=== PATIENT | male | born 1980 | race Caucasian/White ===

== ENCOUNTER 2019-07-17 12:16 | Outpatient (CLI) | payer MEDICAID ==
--- NOTE | 2019-07-17 14:55 | XRAY Report ---
Reason: CHRONIC PAIN R ANKLE Procedure Date: 07/17/2019 Accession Number: [id number] / [id number] Procedure: XR - Ankle 3 View RT CPT Code: Final Report FULL RESULT: EXAM: RIGHT ANKLE RADIOGRAPHY EXAM DATE: 07/17/2019 12:31 PM. CLINICAL HISTORY: Chronic pain right ankle. COMPARISON: LEG LOWER RT 03/12/2016 5:15 PM CALCANEUS RT 08/11/2016 10:31 AM CALCANEUS RT 06/21/2016 1:26 PM. TECHNIQUE: 3 views. FINDINGS: Bones: Prior operative fixation of calcaneal fracture appears essentially unchanged in configuration. Previously seen mild protrusion of the distal end of a screw beyond the cortex of the calcaneus as seen in 2015 and 2016 is not visualized on today's projections. Joints: The ankle mortise is intact. No odell dislocation. Soft Tissues: No unexpected radiopaque foreign body or soft tissue gas. IMPRESSION: As visualized, essentially unchanged appearance of prior operative fixation of calcaneal fracture without derangement of the ankle mortise. Of note, several screws were demonstrated to protrude beyond the osseous cortex on previous calcaneus radiographs with ipsilateral soft tissue swelling. RADIA
== END 2019-07-17 12:17 | disposition home or self-care (01) ==
LOC: DI 12:16
PROVIDERS: ATTEND Podiatrist
DX: M25.571 Pain in right ankle and joints of right foot (principal)

== ENCOUNTER 2019-08-06 13:46 | Outpatient (CLI) | payer MEDICAID ==
[2019-08-06 13:59] LABS: BASOPHILS # (AUTO) 0.1 10^3/uL (0.0-0.1); EOSINOPHILS # (AUTO) 0.4 10^3/uL (0.0-0.7); EOSINOPHILS % (AUTO) 3.2 %; HGB - HEMOGLOBIN 14.6 g/dL (14.0-18.0); LYMPHOCYTES # (AUTO) 3.2 10^3/uL (1.5-3.5); LYMPHOCYTES % (AUTO) 25.3 %; MEAN CORPUSCULAR HEMOGLOBIN 29.9 pg (27.0-31.0); MEAN CORPUSCULAR HGB CONC 32.7 g/dL (32.0-36.0); MEAN CORPUSCULAR VOLUME 91.2 fL (80.0-94.0); MEAN PLATELET VOLUME 9.9 fL (7.4-11.4); MONOCYTES # (AUTO) 0.6 10^3/uL (0.0-1.0); MONOCYTES % (AUTO) 4.8 %; NEUTROPHILS # (AUTO) 8.2 10^3/uL (1.5-6.6); NEUTROPHILS % (AUTO) 65.1 %; PLT - PLATELET COUNT 298 10^3/uL (130-450); RED BLOOD COUNT 4.89 10^6/uL (4.70-6.10); RED CELL DISTRIBUTION WIDTH 13.7 % (12.0-15.0); WHITE BLOOD COUNT 12.6 x10^3/uL (4.8-10.8)
[2019-08-06 14:15] LABS: ALBUMIN 4.6 g/dL (3.2-5.5); ALBUMIN/GLOBULIN RATIO 1.5 (1.0-2.2); BILIRUBIN,TOTAL 0.5 mg/dL (0.2-1.0); CALCIUM 9.5 mg/dL (8.5-10.3); CREATININE 0.9 mg/dL (0.6-1.2); TOTAL PROTEIN 7.7 g/dL (6.7-8.2)
== END 2019-08-06 13:47 | disposition home or self-care (01) ==
LOC: LAB 13:46
PROVIDERS: ATTEND Family Medicine
DX: R10.13 Epigastric pain (principal)
CPT/HCPCS: 36415; 80053; 82150; 83690; 85025

== ENCOUNTER 2019-10-17 07:15 | Outpatient (CLI) | payer MEDICAID ==
--- NOTE | 2019-10-17 08:41 | Ultrasound Report ---
Reason: EPIGASTRIC PAIN Procedure Date: 10/17/2019 Accession Number: [id number] / [id number] Procedure: US - Abdomen Complete CPT Code: Final Report FULL RESULT: EXAM: ABDOMEN ULTRASOUND EXAM DATE: 10/17/2019 07:15 AM. CLINICAL HISTORY: EPIGASTRIC PAIN. COMPARISON: None. TECHNIQUE: Real-time scanning was performed with static images obtained. FINDINGS: Liver: Submitted images of the liver demonstrate no focal lesions. Main portal vein flow: Hepatopetal. Gallbladder: Normal. No stones, wall thickening, or sonographic Santiago's sign. Biliary System: Common bile duct measures 7 mm. No evidence of intrahepatic bile duct dilatation. Pancreas: Pancreatic parenchyma is within normal limits. There is mild dilatation of the pancreatic duct which measures up to 0.3 cm. Kidneys: Right: 10.3 cm longitudinally. Normal. No contour-deforming mass, stones, or hydronephrosis. Left: 10.6 cm longitudinally. Normal. No contour-deforming mass, stones, or hydronephrosis. Spleen: 12.8 cm. Normal in size and echotexture. Aorta and Inferior Vena Cava: Unremarkable. Other: None. IMPRESSION: 1. No sonographic findings to clearly account for the patient's presentation. 2. Borderline common bile duct dilatation. No evidence of choledocholithiasis or intrahepatic bile duct dilatation. 3. The gallbladder demonstrates no stones or wall thickening. 4. Mild dilatation of the pancreatic duct. Submitted images of the pancreas demonstrate no focal lesions. RADIA
== END 2019-10-17 07:16 | disposition home or self-care (01) ==
LOC: DI 07:15
PROVIDERS: ATTEND Family Medicine
DX: R10.13 Epigastric pain (principal); K83.8 Other specified diseases of biliary tract; K86.89 Other specified diseases of pancreas
CPT/HCPCS: 76700

== ENCOUNTER 2020-05-13 10:17 | Outpatient (CLI) | payer OTHER, MEDICAID ==
--- NOTE | 2020-05-13 13:21 | XRAY Report ---
PROCEDURE: Calcaneus RT INDICATIONS: DISPLACED INTERARTICULAR FX OF R CALCANEUS TECHNIQUE: Two views of the calcaneus were acquired. COMPARISON: 08/11/2016 FINDINGS: Bones: Status post ORIF with plate and screws fixation of the right calcaneus without evidence for massey rdware failure or loosening. No acute fractures or dislocations. Increased sclerosis involving the c alcaneal side of the subtalar joint. Degenerative changes of the tibiotalar joint. No suspicious bony lesions. Soft tissues: No suspicious calcifications. Achilles tendon appears normal. IMPRESSION: Status post surgical fixation of right calcaneal fracture without evidence for hardware loosening or failure. Increased subchondral sclerosis involving the calcaneal side of the subtalar joint likely se quela reactive changes from altered mechanics post injury. No acute fracture seen. Reviewed by: Deniz Schmidt MD on 05/13/2020 1:19 PM PDT Approved by: Deniz Schmidt MD on 05/13/2020 1:19 PM PDT Station ID: [id number]
== END 2020-05-13 23:59 | disposition home or self-care (01) ==
LOC: DI.WCP 10:17
PROVIDERS: ATTEND Orthopaedic Surgery
DX: M76.61 Achilles tendinitis, right leg (principal); S92.061D Displaced intraarticular fracture of right calcaneus, subsequent encounter for fracture with routine healing

== ENCOUNTER 2020-09-20 07:00 | Outpatient (CLI) | payer MEDICAID ==
--- NOTE | 2020-09-20 10:15 | XRAY Report ---
PROCEDURE: Shoulder 3 View LT INDICATIONS: L SHOULDER JOINT PX TECHNIQUE: 3 views of the shoulder were acquired. COMPARISON: None. FINDINGS: Bones: No fractures or dislocations. Very mild left AC joint osteophytic changes are seen with joint space narrowing and subchondral sclerosis. No suspicious bony lesions. Visualized ribs appear intac t. Soft tissues: No suspicious soft tissue calcifications. IMPRESSION: Very mild AC joint osteoarthritis. No shoulder fracture or dislocation. Reviewed by: Alex Rodríguez MD on 09/20/2020 10:13 AM [facility] Approved by: Alex Rodríguez MD on 09/20/2020 10:13 AM [facility] Station ID: [id number]
== END 2020-09-20 23:59 | disposition home or self-care (01) ==
LOC: DI.N 07:00
PROVIDERS: ATTEND Family Medicine
DX: M25.512 Pain in left shoulder (principal); M19.012 Primary osteoarthritis, left shoulder

== ENCOUNTER 2021-01-05 19:44 | Emergency (ER) | payer MEDICAID ==
--- NOTE | 2021-01-05 21:10 | ED Physician Documentation ---
History of Present Illness - Stated complaint Stated Complaint: RT LEG SWELLING - Chief complaint Chief Complaint: Ext Problem - History obtained from History obtained from: Patient - History of Present Illness Timing: How many weeks ago (1) Pain level now: 7 Improved by: rest Worsened by: prolonged standing - Additonal information Additional information: c/o 1 week of atraumatic, gradual onset RLE swelling distal to level of mid- tibia. He subsequently developed pain in same area, although the pain is predominantly anterior aspect only; the pain has been for 2-3 days. He was evaluated in urgent care today and was advised to come to ED for evaluation Review of Systems Constitutional: denies: Fever, Chills, Sweats Cardiac: denies: Chest pain / pressure Respiratory: denies: Dyspnea Skin: denies: Rash Musculoskeletal: reports: Extremity pain, Extremity swelling. denies: Pain with weight bearing Neurologic: denies: Focal weakness, Numbness PD PAST MEDICAL HISTORY - Past Medical History Cardiovascular: None Respiratory: None Endocrine/Autoimmune: None GI: GERD, Ulcers : None Psych: Depression, Anxiety Musculoskeletal: Chronic back pain, Other Derm: None - Past Surgical History Past Surgical History: No General: EGD - Present Medications Home Medications: Ambulatory Orders Medication Instructions Recorded Confirmed Gabapentin 300 mg PO BID #20 capsule 03/15/16 01/05/21 - Allergies Allergies/Adverse Reactions: Allergies Allergy/AdvReac Type Severity Reaction Status Date / Time No Known Drug Allergies Allergy Verified 01/05/21 20:00 - Social History Does the pt smoke?: Yes Smoking Status: Current every day smoker Does the pt drink ETOH?: No Does the pt have substance abuse?: No - Immunizations Immunizations are current?: Yes Immunizations: No immun - POLST Patient has POLST: No PD ED PE NORMAL - Vitals Vital signs reviewed: Yes - General General: Alert and oriented X 3, No acute distress, Well developed/nourished - Derm Derm: Normal color, Warm and dry, No rash - Extremities Extremities: No tenderness to palpate, No edema, No calf tenderness / cord, Other (no obvious/overt edema RLE. nontender to palpation. Negative Heladio's) Results - Vitals Vitals: Vital Signs - 24 hr 01/05/21 01/05/21 19:57 22:03 Temperature 36.3 C L 36.8 C Heart Rate 71 58 L Respiratory 16 16 Rate Blood Pressure 125/71 110/66 O2 Saturation 97 98 Oxygen O2 Source Room air - Rads (name of study) RLE venous doppler Radiology: Prelim report reviewed, See rad report PD MEDICAL DECISION MAKING - ED course Complexity details: reviewed results, re-evaluated patient, considered differential, d/w patient ED course: US is negative for acute process including DVT. results d/w patient. unknown etiology of symptoms at this time, instructed to return if worse or new concerning signs or symptoms develop such as rash, fever Departure - Departure Disposition: 01 Home, Self Care Clinical Impression: Peripheral edema Condition: Good Instructions: ED Leg Swelling Unilateral Follow-Up: Nick Ray MD [Primary Care Provider] - Within 1 week Forms: Activity restrictions Discharge Date/Time: 01/05/21 22:56
[2021-01-05 22:04] VITALS: BP 110/66
--- NOTE | 2021-01-06 07:10 | Ultrasound Report ---
PROCEDURE: Duplex Ext Veins Right INDICATIONS: pain, swelling TECHNIQUE: Real-time imaging, as well as color and pulse Doppler interrogation, were performed of the lower extr emity deep veins from the inguinal ligament to the popliteal fossa. COMPARISON: None. FINDINGS: The deep veins are normally compressible, and free of intraluminal thrombus. Color and pu lse Doppler demonstrate normal phasic intraluminal flow. There is normal augmentation response to di stal compression maneuver. IMPRESSION: No evidence of deep vein thrombosis involving the right lower extremity. Reviewed by: Nan Shepard MD, PhD on 01/06/2021 7:08 AM PDT Approved by: Nan Shepard MD, PhD on 01/06/2021 7:08 AM PDT Station ID: [id number]
== END 2021-01-05 22:56 | disposition home or self-care (01) ==
LOC: ED 19:44
DX: R60.9 Edema, unspecified (principal); F17.200 Nicotine dependence, unspecified, uncomplicated
CPT/HCPCS: 99283; 99284

== ENCOUNTER 2021-01-21 12:52 | Emergency (ER) | payer OTHER, MEDICAID ==
[2021-01-21] MEDS ORDERED: TETANUS/DIPHTHERIA/PERTUSSIS 0.5 ML SYRINGE IM ONE (13:20)
[2021-01-21] MEDS ORDERED: HYDROmorphone 1 MG/ML CARPUJECT IVP STA ×3 (13:20→16:03)
--- NOTE | 2021-01-21 13:25 | ED Physician Documentation ---
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 Also scrape to the right forearm with unknown tetanus status. No amnesia, no head or neck injury. He is unable to walk or bear weight. Has a history of calcaneal fracture on the same side status post ORIF. Review of Systems Ten Systems: 10 systems reviewed and negative Constitutional: reports: Reviewed and negative Eyes: reports: Reviewed and negative Ears: reports: Reviewed and negative Nose: reports: Reviewed and negative PD PAST MEDICAL HISTORY - Past Medical History Cardiovascular: None Respiratory: None Endocrine/Autoimmune: None GI: GERD, Ulcers : None Psych: Depression, Anxiety Musculoskeletal: Chronic back pain, Other Derm: None - Past Surgical History Past Surgical History: No General: EGD Ortho: Other - Present Medications Home Medications: Ambulatory Orders Medication Instructions Recorded Confirmed Gabapentin 300 mg PO BID #20 capsule 03/15/16 01/05/21 Knee Scooter 1 unit TD ONCE #1 01/21/21 Oxycodone HCl/Acetaminophen 1 - 2 each PO Q6H PRN #30 tablet 01/21/21 [Percocet 5-325 mg Tablet] - Allergies Allergies/Adverse Reactions: Allergies Allergy/AdvReac Type Severity Reaction Status Date / Time No Known Drug Allergies Allergy Verified 01/05/21 20:00 - Social History Does the pt smoke?: Yes Smoking Status: Current every day smoker Does the pt drink ETOH?: No Does the pt have substance abuse?: No - Immunizations Immunizations are current?: Yes Immunizations: No immun - POLST Patient has POLST: No PD ED PE NORMAL - Vitals Vital signs reviewed: Yes - General General: Alert and oriented X 3, No acute distress - HEENT HEENT: PERRL, EOMI - Neck Neck: Supple, no meningeal sign, No bony TTP - Cardiac Cardiac: RRR, No murmur - Respiratory Respiratory: No respiratory distress, Clear bilaterally - Abdomen Abdomen: Non tender - Back Back: No CVA TTP, No spinal TTP - Derm Derm: Normal color, Warm and dry - Extremities Extremities: Other (There is a clear deformity of the right ankle consistent with at least a bimalleolar fracture with inversion at the ankle, normal neurovascular function in the foot. No proximal fibular tenderness. Shallow abrasion right medial forearm, no tenderness or limited range of motion) - Neuro Neuro: Alert and oriented X 3, No motor deficit, No sensory deficit, Normal speech Eye Opening: Spontaneous Motor: Obeys Commands Verbal: Oriented GCS Score: 15 Results - Vitals Vitals: Vital Signs - 24 hr 01/21/21 01/21/21 01/21/21 13:08 14:19 14:35 Temperature 36.3 C L Heart Rate 102 H 60 60 Respiratory 20 14 10 L Rate Blood Pressure 150/116 H 122/78 112/72 O2 Saturation 98 100 100 01/21/21 01/21/21 01/21/21 14:40 14:45 15:13 Temperature 36.7 C Heart Rate 60 62 58 L Respiratory 15 18 16 Rate Blood Pressure 113/72 111/71 115/70 O2 Saturation 97 97 98 Oxygen O2 Source Room air - Rads (name of study) Ankle x-ray shows bimalleolar and possibly trimalleolar fracture. Postreduction x-rays improved but not perfect alignment. Radiology: EMP read contemporaneously Procedures - Splint (location) RLE Splint applied by: Physician, Tech Type of splint: Fiberglass, Long leg, Posterior, Stirrup Other: Patient tolerated well, No complications, Neurovascular intact, Crutches provided - Reduction Body part reduced: Right, Ankle Fracture or dislocation: Fracture dislocation Reduction aftercare: Xray confirms reduction, Alignment improved, Splint applied - Procedural sedation Sedation prep: Informed consent, Time out completed, Last meal (8am), PE performed (Mallampati 2), ASA 1 - healthy Sedation medications: propofol (100mg then 30mg IVP) Patient status during sedation: Responds to tactile, Vitals remained stable, Maintained airway, Recovered uneventfully Sedation recovery: Recovered uneventfully Time in sedation (Minutes): 15 Departure - Departure Disposition: 01 Home, Self Care Clinical Impression: Closed bimalleolar fracture of right ankle Qualifiers: Encounter type: initial encounter Qualified Code(s): S82.841A - Displaced bimalleolar fracture of right lower leg, initial encounter for closed fracture Condition: Good Record reviewed to determine appropriate education?: Yes Instructions: ED Fx Lower Ext, ED Splint Care Fiberglass Follow-Up: Tim Barrientos MD [Provider Admit Priv/Credential] - Within 3 Days (Call Sunday for appt) Prescriptions: Knee Scooter 1 unit TD ONCE #1 Oxycodone HCl/Acetaminophen [Percocet 5-325 mg Tablet] 1 - 2 each PO Q6H PRN #30 tablet PRN Reason: pain Comments: Keep it elevated as much as possible. Do not walk or bear weight on the right leg. Follow-up with the orthopedist, calling first thing Sunday for an appointment. I am prescribing a short course of narcotic pain medication for you. These are potentially dangerous and addictive medications that should be used carefully. These medications may constipate you. Take an obeo-jyz-wfrunxe stool softener (docusate) twice daily with plenty of water while taking these medications. If you go 24 hours without a bowel movement, take riuu-rmt-fwjxhef miralax, per package instructions. Do not drink or drive while taking these medications. If you received narcotic or sedating medications while in the emergency department, do not drive for 24 hours. Store this medication in a safe, secure place and out of reach of children. It is a violation of federal law to give or sell this medication to another person or to use in a manner other than prescribed. The ED will not refill narcotic prescriptions, including prescriptions lost or stolen. To dispose of unwanted medications: 1. [facility] at [address] in [place] has a medication drop box. They accept prescription medications (in pill form) Sunday through Sunday 9:00 a.m. to 5:00 p.m. 2. The [facility] [employer] [facility] accepts prescription medications (in pill form only) for disposal year round. Call for more information. 3. Contact the [facility] for the next [facility] sponsored prescription drug collection event. , [phone], or [phone]; Note that many narcotic pain relievers also contain Tylenol/acetaminophen. Please ensure that your total dose of acetaminophen from all sources does not exceed 3 g (3000 mg) per day. Forms: Activity restrictions
[2021-01-21] MEDS ORDERED: PROPOFOL 200 MG/20 ML VIAL IVP STA ×2 (14:05→14:42)
--- NOTE | 2021-01-21 15:24 | XRAY Report ---
PROCEDURE: Tib/Fib RT INDICATIONS: post reduction TECHNIQUE: 2 views of the tibia and fibula were acquired. COMPARISON: X-ray ankle 01/21/2021 FINDINGS: Bones: There are displaced medial and lateral malleolar fractures. There is widening of the tibiotala r joint space. Medial malleolar fracture fragment remains displaced. The posterior malleolus is not w ell evaluated on current exam. No suspicious bony lesions. Soft tissues: No suspicious soft tissue calcifications or masses. IMPRESSION: Interval reduction of bimalleolar fracture. There is widening at the tibiotalar joint space, as well as persistent displacement of the medial malleolar fracture fragment. Reviewed by: Stefanie Granda MD on 01/21/2021 3:22 PM PDT Approved by: Stefanie Granda MD on 01/21/2021 3:22 PM PDT Station ID: [id number]
--- NOTE | 2021-01-21 15:29 | XRAY Report ---
PROCEDURE: Ankle 3 View RT INDICATIONS: ankle inj TECHNIQUE: 3 views of the ankle were acquired. COMPARISON: None FINDINGS: Bones: Mildly displaced and impacted transverse fracture of the tibial metaphysis, nondisplaced media l malleolar fracture, and mildly displaced fracture of the fibula at the level of the syndesmosis. An oblique coronal oriented posterior malleolar fracture is suspected. The tibiofibular relationship ap pears to remain stable. Although there is extension of the medial malleolar fracture plane to the ank le mortise, the ankle mortise is normally aligned. No suspicious bony lesions. There is hardware wi th several transverse fixation screws across the calcaneus. Soft tissues: Small tibiotalar joint effusion. Achilles tendon appears diminutive. IMPRESSION: 1. Mildly displaced bimalleolar fracture. 2. Impacted tibial metaphyseal fracture with probable fracture plane to the posterior malleolus exten ding to the articular surface. 3. Prior surgical fixation of the calcaneus. Reviewed by: Kala Sloan MD on 01/21/2021 3:28 PM PDT Approved by: Kala Sloan MD on 01/21/2021 3:28 PM PDT Station ID: [id number]
[2021-01-21 15:54] VITALS: BP 119/78
[2021-01-21] MEDS ORDERED: KETOROLAC 15 MG/ML VIAL IVP STA (16:03)
== END 2021-01-21 16:29 | disposition home or self-care (01) ==
LOC: ED 12:52
DX: S82.841A Displaced bimalleolar fracture of right lower leg, initial encounter for closed fracture (principal); S50.811A Abrasion of right forearm, initial encounter; W13.2XXA Fall from, out of or through roof, initial encounter; Y93.89 Activity, other specified; Y92.008 Other place in unspecified non-institutional (private) residence as the place of occurrence of the external cause; Y99.0 Civilian activity done for income or pay; Z23 Encounter for immunization; F17.200 Nicotine dependence, unspecified, uncomplicated
CPT/HCPCS: 27810; 73590; 73610; 90471; 90715; 96374; 96376; 99152; 99283; 99285; J1170; 94770

== ENCOUNTER 2021-01-23 20:58 | Emergency (ER) | payer OTHER, MEDICAID ==
[2021-01-23] MEDS ORDERED: HYDROmorphone 1 MG/ML CARPUJECT IM STA ×2 (21:24→22:23)
--- NOTE | 2021-01-23 21:25 | ED Physician Documentation ---
PD HPI LOWER EXT INJURY - Stated complaint Stated Complaint: R ANKLE INJ - Chief complaint Chief Complaint: Trauma Ext - History obtained from History obtained from: Patient, Family - History of Present Illness PD HPI LOW EXT INJURY LOCATION: Right (41-year-old gentleman I saw a few nights ago for a bimalleolar fracture. His pain has been uncontrolled and it all came to ahead tonight when he was getting up and his good foot slipped and the splint hit the coffee table and now has more pain and feels like the splint is rubbing along the lateral) Review of Systems Constitutional: reports: Reviewed and negative Eyes: reports: Reviewed and negative Ears: reports: Reviewed and negative Nose: reports: Reviewed and negative PD PAST MEDICAL HISTORY - Past Medical History Cardiovascular: None Respiratory: None Endocrine/Autoimmune: None GI: GERD, Ulcers : None Psych: Depression, Anxiety Musculoskeletal: Chronic back pain, Other Derm: None - Past Surgical History Past Surgical History: No General: EGD Ortho: Other - Present Medications Home Medications: Ambulatory Orders Medication Instructions Recorded Confirmed Gabapentin 300 mg PO BID #20 capsule 03/15/16 01/05/21 Knee Scooter 1 unit TD ONCE #1 01/21/21 Oxycodone HCl/Acetaminophen 1 - 2 each PO Q6H PRN #30 tablet 01/21/21 [Percocet 5-325 mg Tablet] Oxycodone HCl/Acetaminophen 1 - 2 each PO Q4HR PRN #30 tablet 01/23/21 [Percocet 10-325 mg Tablet] - Allergies Allergies/Adverse Reactions: Allergies Allergy/AdvReac Type Severity Reaction Status Date / Time No Known Drug Allergies Allergy Verified 01/23/21 21:06 - Social History Does the pt smoke?: Yes Smoking Status: Current every day smoker Does the pt drink ETOH?: No Does the pt have substance abuse?: No - Immunizations Immunizations are current?: Yes Immunizations: No immun - POLST Patient has POLST: No PD ED PE NORMAL - Vitals Vital signs reviewed: Yes - General General: Alert and oriented X 3, No acute distress - Extremities Extremities: Other (Toes are warm and well-perfused. No clear deformity of the ankle in the splint.) - Neuro Neuro: Alert and oriented X 3, Normal speech Results - Vitals Vitals: Vital Signs - 24 hr 01/23/21 01/23/21 21:00 22:55 Temperature 36.4 C L 37.3 C Heart Rate 73 69 Respiratory 16 18 Rate Blood Pressure 135/81 H 126/78 O2 Saturation 99 97 Oxygen O2 Source Room air Procedures - Splint (location) rle Splint applied by: Physician Type of splint: Long leg, Posterior, Stirrup, Other (The stirrup portion of the splint was removed and replaced with a new stirrup. The posterior portion was kept in place.) Other: Patient tolerated well, No complications, Neurovascular intact PD MEDICAL DECISION MAKING - ED course ED course: Splint replaced. Pain controlled. Xray without chg. Departure - Departure Disposition: Home, Self Care Clinical Impression: Closed bimalleolar fracture of right ankle Qualifiers: Encounter type: subsequent encounter Fracture healing: with routine healing Qualified Code(s): S82.841D - Displaced bimalleolar fracture of right lower leg, subsequent encounter for closed fracture with routine healing Condition: Good Record reviewed to determine appropriate education?: Yes Instructions: ED Fx Lower Ext Follow-Up: Tim Barrientos MD [Provider Admit Priv/Credential] - Prescriptions: Oxycodone HCl/Acetaminophen [Percocet 10-325 mg Tablet] 1 - 2 each PO Q4HR PRN #30 tablet PRN Reason: Pain Comments: I am prescribing some stronger pain medication, call Dr. Zaldivar's office tomorrow for follow-up. Return for new or worsening symptoms. Continue to not walk or bear weight on that leg. I am prescribing a short course of narcotic pain medication for you. These are potentially dangerous and addictive medications that should be used carefully. These medications may constipate you. Take an txvs-fxa-ecdsfjk stool softener (docusate) twice daily with plenty of water while taking these medications. If you go 24 hours without a bowel movement, take uiok-mxp-poxqhhk miralax, per package instructions. Do not drink or drive while taking these medications. If you received narcotic or sedating medications while in the emergency de partment, do not drive for 24 hours. Store this medication in a safe, secure place and out of reach of children. It is a violation of federal law to give or sell this medication to another person or to use in a manner other than prescribed. The ED will not refill narcotic prescriptions, including prescriptions lost or stolen. To dispose of unwanted medications: 1. [facility] at [address] in [place] has a medication drop box. They accept prescription medications (in pill form) Sunday through Sunday 9:00 a.m. to 5:00 p.m. 2. The [facility] Department accepts prescription medications (in pill form only) for disposal year round. Call for more information. 3. Contact the [facility] for the next [facility] sponsored prescription drug collection event. , [phone], or [phone]; Note that many narcotic pain relievers also contain Tylenol/acetaminophen. Please ensure that your total dose of acetaminophen from all sources does not exceed 3 g (3000 mg) per day.
[2021-01-23] MEDS ORDERED: KETOROLAC 15 MG/ML VIAL IM STA (22:23)
--- NOTE | 2021-01-23 22:45 | XRAY Report ---
PROCEDURE: Ankle 2 View RT INDICATIONS: reinjury TECHNIQUE: 2 views of the ankle were acquired. COMPARISON: 01/21/2021 FINDINGS: Bones: The patient's known fractures of the distal tibia and distal fibula can again be seen, which a re not significantly changed compared to the postreduction images from 01/21/2021. Extensive plate and screw fixation of the calcaneus is again seen, which appears stable. The overlying casting material limits evaluation of fine detail. Soft tissues: No tibiotalar joint effusion. Achilles tendon appears normal. IMPRESSION: Stable study demonstrating fractures of the distal tibia and distal fibula with associated casting ma terial. No acute superimposed fracture is detected. Stable postoperative hardware of the calcaneus can be seen. Reviewed by: Sridhar Moya MD on 01/23/2021 9:44 PM [facility] Approved by: Sridhar Moya MD on 01/23/2021 9:44 PM [facility] Station ID: [id number]
[2021-01-23 22:55] VITALS: BP 126/78
== END 2021-01-23 23:00 | disposition home or self-care (01) ==
LOC: ED 20:58
DX: S82.841A Displaced bimalleolar fracture of right lower leg, initial encounter for closed fracture (principal); X58.XXXA Exposure to other specified factors, initial encounter; F17.200 Nicotine dependence, unspecified, uncomplicated
CPT/HCPCS: 29505; 73600; 96372; 99283; J1170

== ENCOUNTER 2021-01-28 14:14 | Emergency (ER) | payer MEDICAID ==
[2021-01-28] MEDS ORDERED: oxyCODONE 5 MG TABLET PO STA (15:07)
--- NOTE | 2021-01-28 15:20 | ED Physician Documentation ---
PD HPI LOWER EXT INJURY - Stated complaint Stated Complaint: NEW WOUND DRESSING - Chief complaint Chief Complaint: Ext Problem - History obtained from History obtained from: Patient - History of Present Illness PD HPI LOW EXT INJURY LOCATION: Right, Ankle Type of injury: Fall Where injury occurred: Work Timing - onset: How many weeks ago (1) Timing - duration: Weeks (1) Timing - details: Abrupt onset Pain level max: 10 Pain level now: 8 Improved by: Rest, Ice, Immobilization Worsened by: Moving, Palpating Associated symptoms: No: Weakness, Numbness, Tingling, Swelling - Additional information Additional information: Patient has a known right ankle bimalleolar fracture. His splint needs replacement. He has not yet followed up with orthopedics secondary to L&I issues. He is also running low on pain medication. Review of Systems Ten Systems: 10 systems reviewed and negative Constitutional: denies: Fever, Chills GI: denies: Vomiting, Diarrhea Skin: denies: Rash PD PAST MEDICAL HISTORY - Past Medical History Cardiovascular: None Respiratory: None Endocrine/Autoimmune: None GI: GERD, Ulcers : None Psych: Depression, Anxiety Musculoskeletal: Chronic back pain, Other Derm: None - Past Surgical History Past Surgical History: No General: EGD Ortho: Other - Present Medications Home Medications: Ambulatory Orders Medication Instructions Recorded Confirmed Gabapentin 300 mg PO BID #20 capsule 03/15/16 01/05/21 Knee Scooter 1 unit TD ONCE #1 01/21/21 Oxycodone HCl/Acetaminophen 1 - 2 each PO Q6H PRN #30 tablet 01/21/21 [Percocet 5-325 mg Tablet] Oxycodone HCl/Acetaminophen 1 - 2 each PO Q4HR PRN #30 tablet 01/23/21 [Percocet 10-325 mg Tablet] Oxycodone HCl/Acetaminophen 1 tab PO Q4H PRN #30 tablet 01/28/21 [Percocet 10-325 mg Tablet] - Allergies Allergies/Adverse Reactions: Allergies Allergy/AdvReac Type Severity Reaction Status Date / Time codeine AdvReac Rash Verified 01/28/21 14:23 hydrocodone AdvReac Rash Verified 01/28/21 14:23 - Social History Does the pt smoke?: Yes Smoking Status: Current every day smoker Does the pt drink ETOH?: No Does the pt have substance abuse?: No - Immunizations Immunizations are current?: Yes Immunizations: No immun - POLST Patient has POLST: No PD ED PE NORMAL - Vitals Vital signs reviewed: Yes - General General: Alert and oriented X 3, No acute distress - Derm Derm: Warm and dry - Extremities Extremities: Other (Right lower extremity in a splint. Neurovascularly intact.) - Neuro Neuro: Alert and oriented X 3 - Psych Psych: Normal mood, Normal affect Results - Vitals Vitals: Vital Signs - 24 hr 01/28/21 14:19 Temperature 36.8 C Heart Rate 86 Respiratory 18 Rate Blood Pressure 142/74 H O2 Saturation 95 Oxygen O2 Source Room air - Rads (name of study) Right lower extremity CT Radiology: Final report received, EMP read contemporaneously, See rad report Right foot x-ray Radiology: Final report received, EMP read contemporaneously, See rad report (No acute findings) Procedures - Splint (location) R LE Splint applied by: Physician, Tech Type of splint: Fiberglass, Short leg, Posterior, Stirrup Other: Patient tolerated well, No complications, Neurovascular intact PD MEDICAL DECISION MAKING - ED course Complexity details: reviewed results, re-evaluated patient, considered differential, d/w patient, d/w cyber security consultant ED course: The splint was reapplied. Tolerated well. No complications. Right foot x-ray obtained as he was told he may have a fracture in the right foot as well. Patient also had a CT scan of the right ankle per orthopedic request for operative planning. The patient will see orthopedics on Sunday. Spoke with Dr. Barrientos today. Patient counseled regarding signs and symptoms for which I believe and urgent re-evaluation would be necessary. Patient with good un derstanding of and agreement to plan and is comfortable going home at this time This document was made in part using voice recognition software. While efforts are made to proofread this document, sound alike and grammatical errors may occur. IMPRESSION: 1. Trimalleolar fracture with mild widening at the tibiotalar joint space. 2. Fractures also present on the lateral aspect of the tibia. 3. Distal tibial fracture extends into the joint space. Continued areas of bone are noted most consistent with loose bodies. 4. Extensive fusion of the calcaneus secondary to previous comminuted fracture. Areas of nonunion are identified. I am prescribing a short course of short-acting opioid pain medication for this patient. I have reviewed the patients OFFICE EXECUTIVE and no concerning findings were noted. I have discussed that the opioids are for short term therapy only, and will not be refilled from the ED. Departure - Departure Disposition: 01 Home, Self Care Clinical Impression: Trimalleolar fracture of ankle, closed Qualifiers: Encounter type: initial encounter Laterality: right Qualified Code(s): S82.851A - Displaced trimalleolar fracture of right lower leg, initial encounter for andrew sed fracture Condition: Good Instructions: ED Fx Lower Ext, ED Splint Care Fiberglass Follow-Up: Nick Ray MD [Primary Care Provider] - Tim Barrientos MD [Provider Admit Priv/Credential] - Within 1 week Prescriptions: Oxycodone HCl/Acetaminophen [Percocet 10-325 mg Tablet] 1 tab PO Q4H PRN #30 tablet PRN Reason: pain Comments: Follow-up with orthopedics for further care. Return if you worsen. I am prescribing a short course of narcotic pain medication for you. These are potentially dangerous and addictive medications that should be used carefully. These medications may constipate you. Take an kras-vns-bfjmrnt stool softener (docusate) twice daily with plenty of water while taking these medications. If you go 24 hours without a bowel movement, take btnv-[id number] miralax, per package instructions. Do not drink or drive while taking these medications. If you received narcotic or sedating medications while in the emergency department, do not drive for 24 hours. Store this medication in a safe, secure place and out of reach of children. It is a violation of federal law to give or sell this medication to another person or to use in a manner other than prescribed. The ED will not refill narcotic prescriptions, including prescriptions lost or stolen. To dispose of unwanted medications: 1. [facility] [place] [address] in [place] has a medication drop box. They accept prescription medications (in pill form) Sunday through Sunday 9:00 a.m. to 5:00 p.m. 2. The [facility] [employer] accepts prescription medications (in pill form only) for disposal year round. Call for more information. 3. Contact the [facility] for the next [employer] sponsored prescription drug collection event. , [phone], or [phone];
--- NOTE | 2021-01-28 15:59 | XRAY Report ---
PROCEDURE: Foot 3 View RT INDICATIONS: R foot pain s/p fall TECHNIQUE: 3 views of the foot were acquired. COMPARISON: Right ankle radiographs 01/23/2021 FINDINGS: Cast material degrades fine bony detail. Calcaneal hardware is redemonstrated, as are displaced fract ures of the medial malleolus, lateral malleolus, and distal tibia. Intrinsic bones of the foot appear intact with no evidence of additional fracture. Lisfranc plane is maintained. IMPRESSION: Grossly unchanged appearance of ankle fractures; CT of the right ankle is pending. Reviewed by: Kenny Scott MD on 01/28/2021 3:58 PM PDT Approved by: Kenny Scott MD on 01/28/2021 3:58 PM PDT Station ID: [id number]
--- NOTE | 2021-01-28 16:06 | CT Report ---
PROCEDURE: LOWER EXTREMITY WO - RT INDICATIONS: R LE ankle fracture TECHNIQUE: Noncontrast 3 mm axial sections acquired of the right lower extremity, with coronal and sagittal refo rmats. COMPARISON: None. FINDINGS: Image quality: Excellent. Bones: There is a comminuted medial malleolus fracture with mild displacement. In addition, there is a comminuted distal fibular fracture. Comminuted fractures also noted at the distal tibia including along the lateral aspect. Areas of fracture lucency extending into the joint space. There are several punctate areas of bone density identified in the joint space. This is new compared to prior exam. Th ere is widening at the tibiotalar joint space measuring approximately 6 mm. Mildly displaced posterio r malleolar fracture is also present. Extensive calcaneal fixation is present consistent with previous fracture. Areas of nonunion particul marissa within the midportion are identified. Bones are overall diffusely osteopenic. Soft tissues: Extensive soft tissue edema at the ankle is present. IMPRESSION: 1. Trimalleolar fracture with mild widening at the tibiotalar joint space. 2. Fractures also present on the lateral aspect of the tibia. 3. Distal tibial fracture extends into the joint space. Continued areas of bone are noted most consis tent with loose bodies. 4. Extensive fusion of the calcaneus secondary to previous comminuted fracture. Areas of nonunion are identified. Reviewed by: Stefanie Granda MD on 01/28/2021 4:04 PM PDT Approved by: Stefanie Granda MD on 01/28/2021 4:04 PM PDT Station ID: [id number]
[2021-01-28 16:11] VITALS: BP 119/83
== END 2021-01-28 16:13 | disposition home or self-care (01) ==
LOC: ED 14:14
DX: S82.841D Displaced bimalleolar fracture of right lower leg, subsequent encounter for closed fracture with routine healing (principal); X58.XXXD Exposure to other specified factors, subsequent encounter
CPT/HCPCS: 29515; 73630; 73700; 99284; A9270

== ENCOUNTER 2021-02-01 07:00 | Outpatient (CLI) | payer MEDICAID | END 2021-02-01 23:59 | disposition home or self-care (01) | LOC: COV 07:00 | PROVIDERS: ATTEND Orthopaedic Surgery | DX: Z01.812 Encounter for preprocedural laboratory examination (principal); S82.871A Displaced pilon fracture of right tibia, initial encounter for closed fracture; S82.401A Unspecified fracture of shaft of right fibula, initial encounter for closed fracture; Z20.822 Contact with and (suspected) exposure to COVID-19 ==

== ENCOUNTER 2021-02-04 06:07 | Day surgery (SDC) | payer OTHER, MEDICAID ==
[2021-02-04] MEDS ORDERED: ceFAZolin 2 GM/50 ML 2 GM/50 ML BAG IV ONE (06:14)
[2021-02-04] MEDS ORDERED: LACTATED RINGERS 1,000 ML IV ONE ×2 (06:14→12:40)
--- NOTE | 2021-02-04 06:56 | ANESTHESIA ---
Pre-Anesthesia VS, & Labs Height: 5 ft 11 in Weight (kg): 72 kg Body Mass Index: 22.1 BMI Classification: Healthy weight - NPO >8 hours - Lab Results Lab results reviewed: Yes <Alex Zee - Last Filed: 02/04/21 06:54> - NPO >8 hours <Betty Arthur - Last Filed: 02/04/21 07:13> - Diagnosis fracture right tibial plafond and fibular fractures, displaced (Alex Zee) - Procedure ORIF Distal tibia and fibula, possible external fixation (Alex Zee) Vital Signs: Temp Pulse Resp BP Pulse Ox 36.1 C L 69 18 116/68 99 02/04/21 06:26 02/04/21 06:26 02/04/21 06:26 02/04/21 06:26 02/04/21 06:26 Home Medications and Allergies <Alex Zee - Last Filed: 02/04/21 06:54> <Betty Arthur - Last Filed: 02/04/21 07:13> Home Medications: Ambulatory Orders Oxycodone HCl/Acetaminophen [Percocet 10-325 mg Tablet] 1 each PO Q4HR PRN 02/01/21 Oxycodone HCl/Acetaminophen [Percocet 10-325 mg Tablet] 1 each PO Q4HR PRN 02/01/21 Allergies/Adverse Reactions: Allergies Allergy/AdvReac Type Severity Reaction Status Date / Time hydrocodone AdvReac Rash, Verified 02/01/21 15:39 nausea tramadol AdvReac Anxiety, Verified 02/01/21 15:39 angry, aggressive Anes History & Medical History - Anesthetic History Anesthesia Complications: reports: No previous complications Family history of Anesthesia Complications: Denies Family history of Malignant Hyperthermia: Denies - Medical History Cardiovascular: reports: None Pulmonary: reports: None Gastrointestinal: reports: GERD, Ulcers Urinary: reports: None Musculoskeletal: reports: Osteoarthritis, Chronic back pain Endocrine/Autoimmune: reports: None Skin: reports: None Smoking Status: Current every day smoker - Surgical History General: reports: EGD Orthopedic: reports: Other <Alex Zee - Last Filed: 02/04/21 06:54> - Anesthetic History Anesthesia Complications: reports: No previous complications - Medical History Gastrointestinal: reports: GERD, Ulcers Musculoskeletal: reports: Osteoarthritis, Chronic back pain Smoking Status: Current every day smoker <Betty Arthur - Last Filed: 02/04/21 07:13> Exam General: Alert, Oriented x3, Cooperative, No acute distress Dental: WNL Mouth Openin Fingerbreadth Neck Mobility: Normal Respiratory: Lungs clear, Normal breath sounds, No respiratory distress, No accessory muscle use Cardiovascular: Regular rate, Normal S1, Normal S2, No murmurs <Alex Zee - Last Filed: 02/04/21 06:54> General: Alert Dental: Poor dentition Mouth Opening: Greater than 4 Fingerbreadths Mallampati classification: II Respiratory: Lungs clear Cardiovascular: Regular rate, Normal S1, Normal S2 <Betty Arthur - Last Filed: 02/04/21 07:13> Plan Anesthesia Type: General, Popliteal Block, Adductor Block Regional Block: Per Surgeon's request for Post Op pain control Consent for Procedure(s) Verified and Reviewed: Yes Code Status: Attempt Resuscitation ASA classification: 2-Mild systemic disease Is this case an emergency?: No <Alex Zee - Last Filed: 02/04/21 06:54> Anesthesia Type: General, Popliteal Block, Adductor Block Regional Block: Per Surgeon's request for Post Op pain control Consent for Procedure(s) Verified and Reviewed: Yes Code Status: Attempt Resuscitation ASA classification: 2-Mild systemic disease Is this case an emergency?: No <Betty Arthur - Last Filed: 02/04/21 07:13>
[2021-02-04] MEDS ORDERED: MIDAZOLAM 2 MG/2 ML VIAL ONE (07:00)
[2021-02-04] MEDS ORDERED: fentaNYL 100 MCG/2 ML VIAL ONE (07:00)
[2021-02-04] MEDS ORDERED: ONDANSETRON 4 MG/2 ML VIAL IVP PRN (07:14)
[2021-02-04] MEDS ORDERED: ATROPINE ABBOJECT 1 MG/10 ML SYRINGE IVP PRN (07:14)
[2021-02-04] MEDS ORDERED: MORPHINE 2 MG/ML CARPUJECT IVP PRN (07:14)
[2021-02-04] MEDS ORDERED: fentaNYL 100 MCG/2 ML VIAL IVP PRN (07:14)
[2021-02-04] MEDS ORDERED: METOCLOPRAMIDE 10 MG/2 ML VIAL IVP PRN (07:14)
[2021-02-04] MEDS ORDERED: ePHEDrine 50 MG/ML VIAL IVP PRN (07:14)
[2021-02-04] MEDS ORDERED: NALOXONE 0.4 MG/ML VIAL IVP PRN (07:14)
[2021-02-04] MEDS ORDERED: HYDROmorphone 0.5 MG/0.5 ML SYRINGE IVP PRN (07:14)
[2021-02-04] MEDS ORDERED: KETOROLAC 15 MG/ML VIAL IVP STA (07:22)
[2021-02-04] MEDS ORDERED: oxyCODONE 5 MG TABLET PO PRN (07:22)
[2021-02-04] MEDS ORDERED: LACTATED RINGERS 1,000 ML IV SCH (08:00)
[2021-02-04] MEDS ORDERED: KETOROLAC 30 MG/ML VIAL ONE (08:24)
[2021-02-04] MEDS ORDERED: ACETAMINOPHEN 1,000 MG/100 ML 100 ML IV ONE (08:24)
[2021-02-04] MEDS ORDERED: PROPOFOL 200 MG/20 ML VIAL IVP ONE ×2 (09:07→12:18)
[2021-02-04] MEDS ORDERED: VANCOMYCIN 1 GM VIAL MC ONE (11:56)
[2021-02-04] MEDS ORDERED: VANCOMYCIN 1 GM VIAL ONE (11:56)
[2021-02-04] MEDS ORDERED: DEXAMETHASONE 4 MG/ML VIAL ONE (12:28)
--- NOTE | 2021-02-04 12:50 | OPERATIVE REPORT ---
Operative Report - General Procedure Date: 02/04/21 Planned Procedure: Open reduction internal fixation tibial pilon and fibular displaced fractures right ankle Pre-Op Diagnosis: Closed, displaced varus tibial pilon fracture with fibular fracture right a Procedure Performed: Open reduction internal fixation right tibial plafond and, right fibular fracture, allograft bone grafting of tibial plafond Metaphyseal defect Post Op Diagnosis: Postoperative diagnosis same - Procedure Note Primary Surgeon: Tim Barrientos MD Secondary Surgeon: Domenico PARDO Anesthesia Technique: General ET tube, Regional block Estimated Blood Loss (mL): 150 Indications: This is a 41-year-old man sustained a fall from a height. 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 The injury occurred approximately 2 weeks ago and was first seen in my office earlier this week and had routine radiographs and a CT scan of the right ankle. These x-rays showed a displaced comminuted tibial plafond fracture with a varus deformity of the right ankle in association with a transverse fibular fracture at approximately the same level. In 2016 he also had a comminuted intra-a rticular fracture of the right calcaneus treated with open reduction internal fixation. He has had problems with his right heel and has posttraumatic arthritis of the subtalar joint. He has a varus deformity of his right ankle. His swelling is relatively mild. There is no fracture blisters present. He is a smoker and he does have a history of opioid use in the past. 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 Findings: There was a displaced transverse fibular fracture. The tibial plafond fracture had a varus pattern with compression side to the medial tibia. There was a relatively large medial malleolar vertical fracture, a smaller central fracture and at least 2 to 2.5 cm of impaction of the entire articular surface of the tibial plafond and. Fortunately the articular surface at the joint level was mostly intact. There was a small defect measuring 5 mm over the anteromedial plafond. Complications: None - Other Other Information/Narrative: The patient was brought to the operating room, placed in supine position. A pneumatic tourniquet was applied to the proximal right thigh. A gel bolster was placed beneath the right buttock to help with internal rotation of the right leg. A bone foam bolster was applied beneath the right leg. The right lower extremity was prepped and draped in a sterile manner in the usual fashion after satisfactory anesthesia had been achieved. He received a popliteal block and also general anesthesia. A timeout procedure was performed by the entire operating room team. A C arm image intensifier was available and was used intermittently and biplanar mode. The C arm was covered with a sterile drape. The [employer] femoral distractor was applied to the medial aspect of the right leg with a 5 mm bicortical half pin inserted in the tibial shaft proximally and an additional half pin inserted into the junction of the talar neck and head, medial direction. The distraction was used and the C-arm image intensifier sh owed much improved alignment of the fibula. The alignment of the talus improved but the impaction of the tibial plafond did not significantly change. A longitudinal incision was made over the posterior border of the fibula and carried down to the periosteum. The fracture was identified and was found to be in excellent alignment with the femoral distractor helping with the reduction. A reconstruction plate by [employer] was applied, 6-hole with 3 cortices proximal to the fracture and 2 distal. An intramedullary screw was inserted from the tip of the lateral malleolus measuring about 55 mm to provide additional fixation. The fracture was very stable with the screw fixation proximal and distal to fracture utilizing the plate as well as the intramedullary screw inserted from the tip of the lateral malleolus. A second incision was made over the anteromedial aspect of the ankle, longitudinal incision measuring about 10 cm. The fracture of the medial malleolus was exposed and retracted from bone, exposing the entire ankle joint which was obviously impacted leaving a gap in the ankle mortise and a varus angulation deformity. A large osteotome was used to lift the impacted cartilage and subchondral bone and push it in a distal direction to close the joint space gap. The metaphyseal defect that was left was backfilled with cancellous bone chips, freeze dried. These freeze dried b one chips were impacted with a bone punch and then covered with DBM bone putty. The traction was released and the alignment of the ankle mortise was excellent with a medial buttress plate being applied. K wires were used to hold the medial buttress plate in position until proximal screw fixation with cortical screws could compress the plate and distally as well additional screws were inserted to provide a stable construct to the fracture of the medial malleolus and tibial plafond, buttressing of the large medial malleolar fragment without over compressing the metaphyseal region. The ankle mortise had good stability and alignment, good range of motion, no crepitus. The C arm image intensifier was used intermittently to help with alignment and internal fixation position. The final radiographs look very good and biplanar imaging to the right ankle with good fixation and alignment. A tourniquet was utilized during part of the procedure, tourniquet time approximately 45 minutes. The wounds were thoroughly irrigated. Vancomycin powder was used to cover the plates, approximately 1 g for the fibular plate and 1 g for the tibial plate. The subcutaneous tissue was closed with 2 oh strata fix, skin was closed with stainless steel ted. Xeroform, sterile gauze, cast padding, cotton batting and a posterior short leg fiberglass splint was applied with Teodoro wrap. He received 2 g of Ancef intravenously and tolerated the procedure well. A physician assistant finance director was utilized, felt to be a medical necessity to help with exposure, reduction, protection of vital structures, splint application and wound closure.
[2021-02-04] MEDS ORDERED: ONDANSETRON 4 MG/2 ML VIAL IVP ONE (14:00)
[2021-02-04] MEDS ORDERED: ONDANSETRON 4 MG/2 ML VIAL IVP SCH (14:00)
--- NOTE | 2021-02-04 14:46 | XRAY Report ---
PROCEDURE: OR C-Arm Procedure INDICATIONS: ORIF RIGHT TIB FIB TECHNIQUE: 3 intraoperative views of the ankle were obtained. COMPARISON: None. FINDINGS: Extensive distal tibia and fibular fixation is present. Calcaneal fixation is also present. There is relatively good anatomic alignment. IMPRESSION: ORIF of the distal tibia and fibula. Calcaneal fixation is also noted. Reviewed by: Stefanie Granda MD on 02/04/2021 2:45 PM PDT Approved by: Stefanie Granda MD on 02/04/2021 2:45 PM PDT Station ID: [id number]
[2021-02-04 15:12] VITALS: BP 103/65
[2021-02-04] MEDS ORDERED: oxyCODONE 5 MG TABLET ONE (15:25)
--- NOTE | 2021-02-04 19:46 | ANESTHESIA POST OP EVALUATION ---
Anesthesia Post Eval - Post Anesthesia Eval Vitals: Last Vital Signs Temp 36.3 C L 02/04/21 15:00 Pulse 70 02/04/21 15:11 Resp 14 02/04/21 15:11 BP 103/65 02/04/21 15:11 Pulse Ox 99 02/04/21 15:11 CV Function Including HR & BP: Stable Pain Control: Satisfactory Nausea & Vomiting: Negative Mental Status: Baseline Respiratory Status: Airway Patent Hydration Status: Satisfactory Anesthesia Complications: None
== END 2021-02-04 06:08 | disposition home or self-care (01) ==
LOC: SDS 06:07
PROVIDERS: ATTEND Orthopaedic Surgery
DX: S82.871A Displaced pilon fracture of right tibia, initial encounter for closed fracture (principal); S82.831A Other fracture of upper and lower end of right fibula, initial encounter for closed fracture; F17.210 Nicotine dependence, cigarettes, uncomplicated
CPT/HCPCS: 27828; 27899; A9270; C1713; J0131; J0690; J3370; J7120

== ENCOUNTER 2021-03-29 09:00 | Outpatient (CLI) | payer OTHER, MEDICAID ==
--- NOTE | 2021-03-29 11:55 | XRAY Report ---
PROCEDURE: Ankle 3 View RT INDICATIONS: DISPLACED PILON FX OF R TIBIA TECHNIQUE: 3 views of the ankle were acquired. COMPARISON: CT lower extremity, x-ray foot and ankle 01/28/2021 FINDINGS: Bones: ORIF is present of the distal fibula as well as tibia. Calcaneal fixation is also present. The re is relatively good anatomic alignment of fracture fragments. Fracture lucencies remain present wit h minimal interval areas of scattered sclerosis.. Ankle mortise is normally aligned. No suspicious bony lesions. Soft tissues: No tibiotalar joint effusion. Achilles tendon appears normal. IMPRESSION: Minimal interval healing with stable alignment and postsurgical change. Reviewed by: Stefanie Granda MD on 03/29/2021 11:53 AM PDT Approved by: Stefanie Granda MD on 03/29/2021 11:53 AM PDT Station ID: [id number]
== END 2021-03-29 23:59 | disposition home or self-care (01) ==
LOC: DI.N 09:00
PROVIDERS: ATTEND Orthopaedic Surgery
DX: S82.871D Displaced pilon fracture of right tibia, subsequent encounter for closed fracture with routine healing (principal)

== ENCOUNTER 2021-04-26 09:23 | Outpatient (CLI) | payer MEDICAID ==
--- NOTE | 2021-04-26 15:34 | XRAY Report ---
PROCEDURE: Ankle 3 View RT INDICATIONS: DISPLACED PILON FX OF right TIBIA TECHNIQUE: 2 views of the right ankle were acquired. A weightbearing AP view of both ankles was also submitted. COMPARISON: March 29, 2021 FINDINGS: Bones: Redemonstrated healing fractures of the right distal tibia and fibula with fixation hardware i n situ. The fracture lines are slightly less distinct, compatible with ongoing healing. No hardware c ompromise is appreciated. Ankle mortise is normally aligned. No suspicious bony lesions. Soft tissues: Small tibiotalar joint effusion. Achilles tendon appears normal. IMPRESSION: Ongoing healing of the patient's right ankle as detailed above. Reviewed by: Orlin Burns MD on 04/26/2021 3:33 PM PDT Approved by: Orlin Burns MD on 04/26/2021 3:33 PM PDT Station ID: [id number]
== END 2021-04-26 09:24 ==
LOC: DI.N 09:23
PROVIDERS: ATTEND Orthopaedic Surgery
DX: S82.871A Displaced pilon fracture of right tibia, initial encounter for closed fracture (principal)

== ENCOUNTER 2021-05-26 08:10 | Outpatient (CLI) | payer MEDICAID ==
--- NOTE | 2021-05-26 14:52 | XRAY Report ---
PROCEDURE: Ankle 3 View RT INDICATIONS: DISPLACED FX OF BODY OF RIGHT TALUS TECHNIQUE: 3 views of the ankle were acquired. COMPARISON: Ankle x-ray 04/26/2021 FINDINGS: Bones: Medial and lateral malleoli are fixation is present. Extensive calcaneal fusion is also noted. There is good anatomic alignment and hardware is intact. Fracture lucencies persist. Regional osteop enia is present. Ankle mortise is normally aligned. No suspicious bony lesions. Soft tissues: No tibiotalar joint effusion. Achilles tendon appears normal. IMPRESSION: Stable post surgical changes and alignment as above. Reviewed by: Stefanie Granda MD on 05/26/2021 2:51 PM PST Approved by: Stefanie Granda MD on 05/26/2021 2:51 PM PST Station ID: [id number]
== END 2021-05-26 23:59 | disposition home or self-care (01) ==
LOC: DI.N 08:10
PROVIDERS: ATTEND Physician Assistant
DX: S82.871D Displaced pilon fracture of right tibia, subsequent encounter for closed fracture with routine healing (principal)

== ENCOUNTER 2022-05-06 11:51 | Outpatient (CLI) | payer MEDICAID ==
[2022-05-06 19:11] LABS: BASOPHILS # (AUTO) 0.1 10^3/uL (0.0-0.1); BASOPHILS % (AUTO) 1.4 %; EOSINOPHILS # (AUTO) 0.5 10^3/uL (0.0-0.7); EOSINOPHILS % (AUTO) 5.1 %; HCT - HEMATOCRIT 45.1 % (42.0-52.0); HGB - HEMOGLOBIN 14.1 g/dL (14.0-18.0); LYMPHOCYTES # (AUTO) 2.5 10^3/uL (1.5-3.5); LYMPHOCYTES % (AUTO) 27.1 %; MEAN CORPUSCULAR HEMOGLOBIN 28.8 pg (27.0-31.0); MEAN CORPUSCULAR HGB CONC 31.3 g/dL (32.0-36.0); MEAN CORPUSCULAR VOLUME 92.2 fL (80.0-94.0); MEAN PLATELET VOLUME 10.5 fL (7.4-11.4); MONOCYTES # (AUTO) 0.7 10^3/uL (0.0-1.0); MONOCYTES % (AUTO) 7.6 %; NEUTROPHILS # (AUTO) 5.4 10^3/uL (1.5-6.6); NEUTROPHILS % (AUTO) 58.4 %; PLT - PLATELET COUNT 349 10^3/uL (130-450); RED BLOOD COUNT 4.89 10^6/uL (4.70-6.10); RED CELL DISTRIBUTION WIDTH 13.5 % (12.0-15.0); WHITE BLOOD COUNT 9.3 x10^3/uL (4.8-10.8)
[2022-05-06 19:18] LABS: ALBUMIN 4.5 g/dL (3.2-5.5); ALBUMIN/GLOBULIN RATIO 1.5 (1.0-2.2); ALKALINE PHOSPHATASE 81 IU/L (42-121); ALT ALANINE AMINOTRANSFERASE 20 IU/L (10-60); AST ASPARTATE AMINOTRANSFERASE 22 IU/L (10-42); BILIRUBIN,TOTAL 0.6 mg/dL (0.2-1.0); BUN - BLOOD UREA NITROGEN 16 mg/dL (6-20); CALCIUM 9.6 mg/dL (8.5-10.3); CARBON DIOXIDE - CO2 30 mmol/L (21-32); CHLORIDE 103 mmol/L (101-111); CHOL/HDL RATIO 3.9 (<5.0); CHOLESTEROL 196 mg/dL; CREATININE 0.7 mg/dL (0.6-1.2); GFR - MDRD 123 (>89); GLUCOSE 102 mg/dL (70-100); HDL CHOLESTEROL 50 mg/dL; LDL CHOLESTEROL,CALCULATED 125 mg/dL; LDL/HDL RATIO 2.5 (<3.6); POTASSIUM 4.4 mmol/L (3.5-5.0); SODIUM 140 mmol/L (135-145); TOTAL PROTEIN 7.6 g/dL (6.7-8.2); TRIGLYCERIDES 104 mg/dL; VLDL CHOLESTEROL 21 mg/dL
[2022-05-06 19:26] LABS: THYROID STIMULATING HORMONE 1.17 uIU/mL (0.34-5.60)
== END 2022-05-06 11:52 | disposition home or self-care (01) ==
LOC: LAB.N 11:51
PROVIDERS: ATTEND Family Medicine
DX: K27.9 Peptic ulcer, site unspecified, unspecified as acute or chronic, without hemorrhage or perforation (principal); G89.29 Other chronic pain; S82.871A Displaced pilon fracture of right tibia, initial encounter for closed fracture; K21.9 Gastro-esophageal reflux disease without esophagitis; Z79.891 Long term (current) use of opiate analgesic
CPT/HCPCS: 36415; 80050; 80061; 83721